=== PATIENT | male | born 1965 | race Caucasian/White ===

== ENCOUNTER → 2017-10-09 | Outpatient (CLI) | payer MEDICAID, OTHER ==
[~2017-10-09] MED LIST: GADOBENATE DIMEGLUMINE 20 ML IV ONE
== END | disposition home or self-care (01) ==
LOC: RAH 09:37
PROVIDERS: ATTEND Internal Medicine
DX: M48.07 Spinal stenosis, lumbosacral region (principal); M51.26 Other intervertebral disc displacement, lumbar region
CPT/HCPCS: 72158; A9577

== ENCOUNTER → 2021-09-09 | Outpatient (CLI) | payer MEDICAID | END | disposition home or self-care (01) | LOC: RAH 11:07 | PROVIDERS: ATTEND Internal Medicine | DX: M15.4 Erosive (osteo)arthritis (principal); K40.20 Bilateral inguinal hernia, without obstruction or gangrene, not specified as recurrent; N32.89 Other specified disorders of bladder; M25.852 Other specified joint disorders, left hip; M25.851 Other specified joint disorders, right hip | CPT/HCPCS: 72195; 73721 ==